=== PATIENT | male | born 2000 | race African-American/Black ===

== ENCOUNTER 2020-03-01 22:45 | Emergency (ER) | payer MEDICARE, MEDICAID ==
[~2020-03-01] VITALS: Ht 175 cm; Wt 60.8 kg
[~2020-03-01 22:45] MED LIST: DIVA250T12; RISP0.5T24; VIVANCE
--- OUTSIDE RECORDS SUMMARY | 2020-03-01 22:51 | XMS REPORT | Continuity of Care Document ---
Author Organization Unknown Address Unknown Phone Unavailable Allergies Active Description Code Type Severity Reaction Onset Reported/Identified Relationship to Patient Clinical Status Yes risperidone [id number] Drug Aller gy Unknown N/A 10/26/2019 Medications There is no data. Problems There is no data. Procedures There is no data. Results There is no data. Encounters ACCT No. Visit Date/Time Discharge Status Pt. Type Provider Facility Loc./Unit Complaint [id number] 10/26/2019 15:49:00 019 16:22:00 DIS Emergency ERIN MACK [facility] ER RASH
--- OUTSIDE RECORDS SUMMARY | 2020-03-01 22:51 | XMS REPORT ---
Author Author Cristian BUSTILLOS 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 Role Phone ALEXX BUSTILLOS Unavailable PROBLEMS Unknown Problems ALLERGIES No Information ENCOUNTERS Encounter Location Date Diagnosis [facility] [address] [place] [address] Feb, [facility] [place] [address] [facility] [id number] [place] [address] Apr, IMMUNIZATIONS No Known Immunizations SOCIAL HISTORY Never Assessed REASON FOR VISIT Requests return call PLAN OF CARE VITAL SIGNS MEDICATIONS Unknown Medications RESULTS No Results PROCEDURES No Known procedures INSTRUCTIONS MEDICATIONS ADMINISTERED No Known Medications
[2020-03-01] MEDS ORDERED: LACTATED RINGERS 1,000 ML IV ONE (22:59)
[2020-03-01 23:07] LABS: BILIRUBIN,URINE NEGATIVE (NEGATIVE); CLARITY,URINE SL CLOUDY; COLOR,URINE YELLOW; GLUCOSE, URINE (UA) NEGATIVE (NEGATIVE); KETONES,URINE 2+ (NEGATIVE); LEUKOCYTE ESTERASE ,URINE TRACE (NEGATIVE); NITRITE,URINE NEGATIVE (NEGATIVE); PROTEIN,URINE NEGATIVE (NEGATIVE)
--- NOTE | 2020-03-01 23:16 | ED General ---
General Chief Complaint: General Problems/Pain Stated Complaint: WEAKNESS Nursing Triage Note: Pt ambulates to Rm 5 with c/o weakness, headache and "feeling weird". Pt states he was Dx with upper resp infection x 1 mo ago and has been taking nyquil. Nursing Sepsis Screen: No Definite Risk Source of Information: Patient Exam Limitations: No Limitations History of Present Illness Date Seen by Provider: Mar 01, 2020 Time Seen by Provider: 22:55 Initial Comments Here with a variety of vague complaints including feeling weak and weird, tingly and concerned about having history of upper respiratory infection diagnosed a month ago while in [place]. Denies fevers but is not sure. Has had some anak-pga-zpbggde medicine that he reports is not helping. Denies breathing problems or sore throat. Runny nose or cough currently. Admits to drinking a little bit tonight of Devon's hard lemonade. States it is only about a half a bottle. Has been staying with family here locally over the last month and has no known sick contacts. Reports throwing up some phlegm today. Reports darker urine and thinks he might be dehydrated. History of bipolar disorder but hasn't been on meds for "a long time". Timing/Duration: Changing Over Time, Intermittent, Other (4-6 weeks) Severity: Mild, Moderate Associated Systoms: No Chest Pain; Cough (mild intermittent); No Fever/Chills; Nausea/Vomiting; No Shortness of Air; Weakness Allergies and Home Medications Allergies Coded Allergies: No Known Drug Allergies (Unverified , 03/01/20) Patient Home Medication List Home Medication List Reviewed: Yes Review of Systems Review of Systems Constitutional: see HPI EENTM: No nose congestion, No throat pain Respiratory: cough; No short of breath Cardiovascular: No no symptoms reported Gastrointestinal: see HPI; No abdominal pain, No diarrhea Genitourinary: see HPI; No dysuria, No frequency Musculoskeletal: no symptoms reported Skin: no symptoms reported Psychiatric/Neurological: See HPI All Other Systems Reviewed Negative Unless Noted: Yes Past Jiguoht-Ykhmvt-Fhvsey Hx Past Med/Social Hx: Reviewed Nursing Past Med/Soc Hx Patient Social History Alcohol Use: Rarely Uses Recreational Drug Use: No Smoking Status: Former Smoker Type Used: Cigarettes Former Smoker, Quit: Jan 27, 2020 2nd Hand Smoke Exposure: Yes Recent Foreign Travel: No Contact w/Someone Who Travel: No Recent Infectious Disease Expo: No Past Medical History Surgeries: No Respiratory: No Cardiac: No Neurological: No Genitourinary: No Gastrointestinal: No Musculoskeletal: No Endocrine: No Psychosocial: Yes ADD/ADHD, Bipolar Family Medical History Reviewed Nursing Family Hx Physical Exam Vital Signs Vital Signs - First Documented 03/01/20 22:52 Temp 36.5 Pulse 87 Resp 25 B/P (MAP) 146/89 (108) Pulse Ox 98 O2 Delivery Room Air Capillary Refill : Less Than 3 Seconds Height, Weight, BMI Height: '" Weight: lbs. oz. kg; 19.00 BMI Method: General Appearance: No Apparent Distress, WD/WN HEENT: PERRL/EOMI, TMs Normal, Normal ENT Inspection, Pharynx Normal Neck: Non Tender, Supple Respiratory: Lungs Clear, Normal Breath Sounds Cardiovascular: Regular Rate, Rhythm, No Murmur Gastrointestinal: Non Tender, Soft Back: Normal Inspection, No CVA Tenderness, No Vertebral Tenderness Extremity: Normal Range of Motion, Non Tender Neurologic/Psychiatric: Alert, Oriented x3 Skin: Warm/Dry, Other (has hicky gardner on his neck) Progress/Results/Core Measures Suspected Sepsis Recent Fever Within 48 Hours: No Infection Criteria Present: None New/Unexplained Altered Menta: No Sepsis Screen: No Definite Risk SIRS Temperature: Pulse: 87 Respiratory Rate: 25 Laboratory Tests 03/01/20 23:05: White Blood Count 7.8 Blood Pressure 146 /89 Mean: 108 Laboratory Tests 03/01/20 23:05: Creatinine 0.79, Platelet Count 208, Total Bilirubin 0.9 Results/Orders Lab Results Laboratory Tests Test 03/01/20 23:00 03/01/20 23:05 03/01/20 23:11 Range/Units Urine Color YELLOW Urine Clarity SL CLOUDY Urine pH 7.0 5-9 Urine Specific [place] 1.015 L 1.016-1.022 Urine Protein NEGATIVE NEGATIVE Urine Glucose (UA) NEGATIVE NEGATIVE Urine Ketones 2+ H NEGATIVE Urine Nitrite NEGATIVE NEGATIVE Urine Bilirubin NEGATIVE NEGATIVE Urine Urobilinogen 0.2 < = 1.0 MG/DL Urine Leukocyte Esterase TRACE H NEGATIVE Urine RBC (Auto) NEGATIVE NEGATIVE Urine RBC NONE /HPF Urine WBC 2-5 /HPF Urine Crystals NONE /LPF Urine Bacteria TRACE /HPF Urine Casts NONE /LPF Urine Mucus SMALL H /LPF Urine Culture Indicated NO White Blood Count 7.8 4.3-11.0 10^3/uL Red Blood Count 4.80 4.35-5.85 10^6/uL Hemoglobin 14.1 13.3-17.7 G/DL Hematocrit 40 40-54 % Mean Corpuscular Volume 84 80-99 FL Mean Corpuscular Hemoglobin 29 25-34 PG Mean Corpuscular Hemoglobin Concent 35 32-36 G/DL Red Cell Distribution Width 12.3 10.0-14.5 % Platelet Count 208 130-400 10^3/uL Mean Platelet Volume 10.2 7.4-10.4 FL Neutrophils (%) (Auto) 43 42-75 % Lymphocytes (%) (Auto) 42 12-44 % Monocytes (%) (Auto) 10 0-12 % Eosinophils (%) (Auto) 5 0-10 % Basophils (%) (Auto) 0 0-10 % Neutrophils # (Auto) 3.4 1.8-7.8 X 10^3 Lymphocytes # (Auto) 3.3 1.0-4.0 X 10^3 Monocytes # (Auto) 0.8 0.0-1.0 X 10^3 Eosinophils # (Auto) 0.4 H 0.0-0.3 10^3/uL Basophils # (Auto) 0.0 0.0-0.1 10^3/uL Sodium Level 140 135-145 MMOL/L Potassium Level 3.3 L 3.6-5.0 MMOL/L Chloride Level 105 98-107 MMOL/L Carbon Dioxide Level 21 21-32 MMOL/L Anion Gap 14 5-14 MMOL/L Blood Urea Nitrogen 13 7-18 MG/DL Creatinine 0.79 0.60-1.30 MG/DL Estimat Glomerular Filtration Rate > 60 BUN/Creatinine Ratio 16 Glucose Level 102 70-105 MG/DL Calcium Level 9.9 8.5-10.1 MG/DL Corrected Calcium 8.5-10.1 MG/DL Total Bilirubin 0.9 0.1-1.0 MG/DL Aspartate Amino Transf (AST/SGOT) 29 5-34 U/L Alanine Aminotransferase (ALT/SGPT) 30 0-55 U/L Alkaline Phosphatase 65 40-136 U/L C-Reactive Protein High Sensitivity 0.04 0.00-0.50 MG/DL Total Protein 8.1 6.4-8.2 GM/DL Albumin 4.9 H 3.2-4.5 GM/DL Glucometer 106 70-110 MG/DL My Orders Orders - MADDISON PETERSON MD Chest Pa/Lat (2 View) (03/01/20 22:59) Cbc With Automated Diff (03/01/20 22:59) Comprehensive Metabolic Panel (03/01/20 22:59) Hs C Reactive Protein (03/01/20 22:59) Ua Culture If Indicated (03/01/20 22:59) Ed Iv/Invasive Line Start (03/01/20 22:59) Lactated Ringers (Lr 1000 Ml Iv Solution (03/01/20 22:59) Acetaminophen Tablet (Tylenol Tablet) (03/01/20 23:49) Ketorolac Injection (Toradol Injection) (03/01/20 23:49) Ondansetron Injection (Zofran Injectio (03/02/20 00:00) Azithromycin Tablet (Zithromax Tablet) (03/01/20 23:52) Medications Given in ED Current Medications Medications Dose Ordered Sig/Omayra Route Start Time Stop Time Status Last Admin Dose Admin Lactated Ringer's 1,000 ml @ 0 mls/hr Q0M ONCE IV 03/01/20 22:59 03/01/20 23:01 DC 03/01/20 23:10 0 MLS/HR Vital Signs/I&O 03/01/20 22:52 Temp 36.5 Pulse 87 Resp 25 B/P (MAP) 146/89 (108) Pulse Ox 98 O2 Delivery Room Air Capillary Refill : Less Than 3 Seconds Blood Pressure Mean: 108 Progress Note : Progress Note Seen and evaluated. IV, labs, UA, LR 1 L bolus and 2 view chest x-ray ordered. Monitor patient. Tylenol 1 g by mouth, Toradol 30 mg IV and Zofran 4 mg IV ordered for headache and nausea. Monitor patient. 2350: Fluids complete and labs reviewed. No significant findings aside from some mild dehydration. This was discussed with the patient. Discharged home with return precautions. Patient verbalize understanding instructions and agreement with plan. We will initiate outpatient azithromycin for possible atypical pneumonia or bronchitis due to persistence over the last month and a half. Azithromycin 500 mg by mouth ordered. Diagnostic Imaging Diagonstic Imaging: Xray Plain Films/CT/US/NM/MRI: chest Comments No acute findings Departure Impression Primary Impression: Bronchitis Additional Impression: Dehydration Disposition: 01 HOME, SELF-CARE Condition: Against Medical Advice Departure-Patient Inst. Decision time for Depature: 23:53 Referrals: NO,LOCAL PHYSICIAN (PCP/Family) Primary Care Physician Patient Instructions: Acute Bronchitis, Adult (DC), Dehydration, Adult (DC) Add. Discharge Instructions: All discharge instructions reviewed with patient and/or family. Voiced understanding. Drink plenty of fluids. Eat a regular diet. You may start out with her liquids and then advance as tolerated to normal. You may take Tylenol/acetaminophen 1000 mg every 8 hours as needed for fever or pain if you are not taking other medications that have acetaminophen in them. You may take ibuprofen 600 mg every 8 hours as needed for fever or pain. Return for worse pain, fever, vomiting, weakness, breathing problems or other concerns as needed. Scripts Azithromycin (Azithromycin) 250 Mg Tablet 250 MG PO DAILY, #4 TAB 0 Refills Prov: MADDISON PETERSON MD 03/01/20 MADDISON PETERSON MD Mar 01, 2020 23:16
[2020-03-01 23:20] LABS: BASOPHILS % (AUTO) 0 % (0-10); EOSINOPHILS # (AUTO) 0.4 10^3/uL (0.0-0.3); EOSINOPHILS % (AUTO) 5 % (0-10); HEMATOCRIT 40 % (40-54); HEMOGLOBIN 14.1 G/DL (13.3-17.7); LYMPHOCYTES # (AUTO) 3.3 X 10^3 (1.0-4.0); LYMPHOCYTES % (AUTO) 42 % (12-44); MEAN CORPUSCULAR HEMOGLOBIN 29 PG (25-34); MEAN CORPUSCULAR HGB CONC 35 G/DL (32-36); MEAN CORPUSCULAR VOLUME 84 FL (80-99); MEAN PLATELET VOLUME 10.2 FL (7.4-10.4); MONOCYTES # (AUTO) 0.8 X 10^3 (0.0-1.0); MONOCYTES % (AUTO) 10 % (0-12); NEUTROPHILS # (AUTO) 3.4 X 10^3 (1.8-7.8); NEUTROPHILS % (AUTO) 43 % (42-75); PLATELET COUNT 208 10^3/uL (130-400); RED CELL DISTRIBUTION WIDTH 12.3 % (10.0-14.5); WHITE BLOOD COUNT 7.8 10^3/uL (4.3-11.0)
[2020-03-01 23:22] LABS: ALBUMIN 4.9 GM/DL (3.2-4.5); CHLORIDE 105 MMOL/L (98-107); POTASSIUM 3.3 MMOL/L (3.6-5.0); SODIUM 140 MMOL/L (135-145)
[2020-03-01 23:24] LABS: CALCIUM 9.9 MG/DL (8.5-10.1)
[2020-03-01 23:25] LABS: GLUCOSE 102 MG/DL (70-105); TOTAL PROTEIN 8.1 GM/DL (6.4-8.2)
[2020-03-01 23:26] LABS: BILIRUBIN,TOTAL 0.9 MG/DL (0.1-1.0); CARBON DIOXIDE 21 MMOL/L (21-32)
[2020-03-01 23:28] LABS: BACTERIA,URINE TRACE /HPF
[2020-03-01 23:28] LABS: ALKALINE PHOSPHATASE 65 U/L (40-136); CREATININE SERUM 0.79 MG/DL (0.60-1.30); GFR ESTIMATED > 60
[2020-03-01 23:29] LABS: BUN/CREATININE RATIO 16
[2020-03-01 23:40] LABS: ALANINE AMINOTRANSFERASE 30 U/L (0-55)
[2020-03-01] MEDS ORDERED: KETOROLAC 30 MG/ML VIAL IVP STA (23:49)
[2020-03-01] MEDS ORDERED: ACETAMINOPHEN 500 MG TAB (TYLENOL) PO STA (23:49)
[2020-03-01] MEDS ORDERED: AZITHROMYCIN 250 MG TAB (ZITHROMAX) PO STA (23:52)
[2020-03-01] MEDS ORDERED: AZIT250T12 PO (23:56)
[2020-03-02] MEDS ORDERED: ONDANSETRON 4 MG/2 ML (SDV) Z0FRAN IVP ONE
[2020-03-02 00:21] VITALS: BP 129/87
--- NOTE | 2020-03-02 06:41 | Diagnostic Imaging Report ---
INDICATION: Cough and congestion. No prior examinations are available for comparison. FINDINGS: The heart size, mediastinal configuration, and pulmonary vascularity are within normal limits. There is no pleural effusion, pneumothorax, or pneumonia. The osseous structures are unremarkable. IMPRESSION: No acute cardiopulmonary abnormality. Dictated by: Dictated on workstation # [id number]
== END 2020-03-02 00:22 | disposition home or self-care (01) ==
LOC: EDUNIT# 22:45 → ER 22:47
DX: J40 Bronchitis, not specified as acute or chronic (principal); E86.0 Dehydration; F31.9 Bipolar disorder, unspecified; Z91.14 Patient's other noncompliance with medication regimen; Z87.891 Personal history of nicotine dependence; Z77.22 Contact with and (suspected) exposure to environmental tobacco smoke (acute) (chronic)
CPT/HCPCS: 36415; 71046; 80053; 81000; 82962; 85025; 86141

== ENCOUNTER 2020-03-22 21:33 | Emergency (ER) | payer MEDICARE, MEDICAID ==
[~2020-03-22] VITALS: Ht 175 cm; Wt 62.8 kg
[~2020-03-22 21:33] MED LIST changes: +AZIT250T12 PO
--- OUTSIDE RECORDS SUMMARY | 2020-03-22 21:39 | XMS REPORT | Continuity of Care Document ---
Author Organization Unknown Address Unknown Phone Unavailable Allergies Active Description Code Type Severity Reaction Onset Reported/Identified Relationship to Patient Clinical Status Yes risperidone [id number] Drug Aller gy Unknown N/A 10/26/2019 Yes No Known Drug Allergies [id number] Drug Allergy Unknown N/A 03/01/2020 Medications There is no data. Problems Date Dx Coded Attending Type Code Diagnosis Diagnosed By 10/26/2019 TANG KHAN APRN Other L23.9 ALLERGIC CONTACT DERMATITIS, UNSPECIFIED CAUSE 10/26/2019 TANG KHAN APRN Other R21 RASH AND OTHER NONSPECIFIC SKIN ERUPTION 03/02/2020 MADDISON PETERSON MD Ot E86.0 DEHYDRATION 03/02/2020 MADDISON PETERSON MD Ot F31.9 BIPOLAR DISORDER, UNSPECIFIED 03/02/2020 MADDISON PETERSON MD Ot J40 BRONCHITIS, NOT SPECIFIED ACUTE OR CH 03/02/2020 MADDISON PETERSON MD Ot R53.1 WEAKNESS 03/02/2020 MADDISON PETERSON MD Ot Z77.22 CNTCT W AND EXPSR TO ENVIRON TOBACCO SMO 03/02/2020 MADDISON PETERSON MD Ot Z87.891 PERSONAL HISTORY OF NICOTINE DEPENDENCE 03/02/2020 MADDISON PETERSON MD Ot Z91.14 PATIENT'S OTHER NONCOMPLIANCE WITH MEDIC 03/05/2020 MADDISON PETERSON MD Ot E86.0 DEHYDRATION 03/05/2020 MADDISON PETERSON MD Ot F31.9 BIPOLAR DISORDER, UNSPECIFIED 03/05/2020 MADDISON PETERSON MD Ot J40 BRONCHITIS, NOT SPECIFIED ACUTE OR CH 03/05/2020 MADDISON PETERSON MD Ot R53.1 WEAKNESS 03/05/2020 MADDISON PETERSON MD Ot Z77.22 CNTCT W AND EXPSR TO ENVIRON TOBACCO SMO 03/05/2020 MADDISON PETERSON MD Ot Z87.891 PERSONAL HISTORY OF NICOTINE DEPENDENCE 03/05/2020 NICHOLAS HALL, MADDISON Andrews Ot Z91.14 PATIENT'S OTHER NONCOMPLIANCE WITH MEDIC Procedures Code Description [place] [address] JYOTSNA PUENTE DEPT VISIT 10/26/2019 Q0163 Diph enhydramine hydrochloride, 50 mg, 10/26/2019 Results Test Result Range Complete urinalysis with reflex to cultu re - 03/01/20 23:00 Urine color determination YELLOW NRG Urine clarity determination SL CLOUDY N RG Urine pH measurement by test strip 7.0 5-9 Specific gravity of urine by test strip 1.015 1.016-1.022 Urine protein assay by test strip, semi-quantitative NEGATIVE NEGATIVE Urine glucose detection by automated test strip NE GATIVE NEGATIVE Erythrocytes detection in urine sediment by light micr oscopy NEGATIVE NEGATIVE Urine ketones detection by automated test strip 2+ NEGATIVE Urine nitrite detection by test strip NEGATIVE NEGATIVE Urine total bilirubin detection by test strip NEGA TIVE NEGATIVE Urine urobilinogen measurement by automated test strip (mass/volume) 0.2 mg/dL < = 1.0 Urine leukocyte esterase detection by dipstick TRA CE NEGATIVE Automated urine sediment erythrocyte cou nt by microscopy (number/high power field) NONE NRG Automated urine sediment leukocyte count by microscopy (number/high power field) [HPF] NRG Bacteria detection in urine sediment by light microsco py TRACE NRG Crystals detection in urine sediment by light microsco py NONE NRG Casts detection in urine sediment by light microscopy NONE NRG Mucus detection in urine sediment by light microscopy SMALL NRG Complete urinalysis with reflex to culture NO NRG Comprehensive metabolic panel - 03/01/20 23:05 Serum or plasma sodium measurement (moles/volume) 140 mmol/L 135-145 Serum or plasma potassium measurement (moles/volume) 3.3 mmol/L 3.6-5.0 Serum or plasma chloride measurement (moles/volume) 105 mmol/L 98-107 Carbon dioxide 21 mmol/L 21-32 Serum or plasma anion gap determination (moles/volume) 14 mmol/L 5-14 Serum or plasma urea nitrogen measurement (mass/volume ) 13 mg/dL 7-18 Serum or plasma creatinine measurement (mass/volume) 0.79 mg/dL 0.60-1.30 Serum or plasma urea nitrogen/creatinine mass ratio 16 NRG Serum or plasma creatinine measurement w ith calculation of estimated glomerular filtration rate > NRG Serum or plasma glucose measurement (mass/volume) 102 mg/dL 70-105 Serum or plasma calcium measurement (mass/volume) 9.9 mg/dL 8.5-10.1 Serum or plasma total bilirubin measurement (mass/volu me) 0.9 mg/dL 0.1-1.0 Serum or plasma alkaline phosphatase maximo surement (enzymatic activity/volume) 65 U/L 40-136 Serum or plasma aspartate aminotransfera se measurement (enzymatic activity/volume) 29 U/L 5-34 Serum or plasma alanine aminotransferase measurement (enzymatic activity/volume) 30 U/L 0-55 Serum or plasma protein measurement (mass/volume) 8.1 g/dL 6.4-8.2 Serum or plasma albumin measurement (mass/volume) 4.9 g/dL 3.2-4.5 Complete blood count (CBC) with automate d white blood cell (WBC) differential - 03/01/20 23:05 Blood leukocytes automated count (number/volume) 7.8 10*3/uL 4.3-11.0 Blood erythrocytes automated count (number/volume) 4.80 10*6/uL 4.35-5.85 Venous blood hemoglobin measurement (mass/volume) 14.1 g/dL 13.3-17.7 Blood hematocrit (volume fraction) 40 % 40-54 Automated erythrocyte mean corpuscular volume 84 [ foz_us] 80-99 Automated erythrocyte mean corpuscular h emoglobin (mass per erythrocyte) 29 pg 25-34 Automated erythrocyte mean corpuscular h emoglobin concentration measurement (mass/volume) 35 g/dL 32-36 Automated erythrocyte distribution width ratio 12. 3 % 10.0- 14.5 Automated blood platelet count (count/volume) 208 10*3/uL 130-400 Automated blood platelet mean volume measurement 10.2 [foz_us] 7.4-10.4 Automated blood neutrophils/100 leukocytes 43 % 42-75 Automated blood lymphocytes/100 leukocytes 42 % 12-44 Blood monocytes/100 leukocytes 10 % 0-12 Automated blood eosinophils/100 leukocytes 5 % 0-10 Automated blood basophils/100 leukocytes 0 % 0-10 Blood neutrophils automated count (number/volume) 3.4 10*3 1.8-7.8 Blood lymphocytes automated count (number/volume) 3.3 10*3 1.0-4.0 Blood monocytes automated count (number/volume) 0. 8 10*3 0.0-1.0 Automated eosinophil count 0.4 10*3/uL 0 .0-0.3 Automated blood basophil count (count/volume) 0.0 10*3/uL 0.0-0.1 Serum or plasma C reactive protein measu rement (mass/volume) - 03/01/20 23:05 Serum or plasma C reactive protein measurement (mass/v olume) 0.04 mg/dL 0.00-0.50 Capillary blood glucose measurement by g lucometer (mass/volume) - 03/01/20 23:11 Capillary blood glucose measurement by glucometer (mas s/volume) 106 mg/dL 70-110 Encounters ACCT No. Visit Date/Time Discharge Status Pt. Type Provider Facility Loc./Unit Complaint [id number] 10/26/2019 15:49:00 019 16:22:00 DIS Emergency ERIN MACK [facility] ER RASH [id number] 03/01/2020 22:47:00 020 00:22:00 DIS Emergency NICHOLAS HALL, MADDISON Andrews [facility] ER WEAKNESS
[2020-03-23] MEDS ORDERED: FLUT9.9S NSEACH (01:01)
--- NOTE | 2020-03-23 01:01 | ED General ---
General Chief Complaint: Respiratory Problems Stated Complaint: BRONCHITIS Source of Information: Patient Exam Limitations: No Limitations History of Present Illness Date Seen by Provider: March 23, 2020 Time Seen by Provider: 00:40 Initial Comments Treated in the ER for bronchitis and dehydration 3 weeks ago. Since then cough has improved. But he now has occasional chest and epigastric pain that it diet dependent. He also has sneezing and post nasal drip. He wonders about dehydration but he has been drinking plenty of clears with normal urine. Vital signs are unremarkable. States he sometimes feels "weird". Denies smoking but is exposed to second hand cigarette and marijuana. Allergies and Home Medications Allergies Coded Allergies: aripiprazole (Verified Allergy, Unknown, 03/23/20) risperidone (Verified Allergy, Unknown, 03/23/20) Home Medications Azithromycin 250 Mg Tablet, 250 MG PO DAILY Prescribed by: MADDISON PETERSON on 03/01/20 3793 Fluticasone Propionate 9.9 Ml [place].susp, 2 SPRAY NSEACH DAILY 2 SPRAYS PER NOSTRIL DAILY X 2 DAYS THEN 1 SPRAY DAILY Prescribed by: RADHA MASSEY on 03/23/20 0101 Patient Home Medication List Home Medication List Reviewed: Yes Review of Systems Review of Systems Constitutional: no symptoms reported EENTM: see HPI Respiratory: see HPI Cardiovascular: no symptoms reported Gastrointestinal: no symptoms reported Genitourinary: no symptoms reported Musculoskeletal: no symptoms reported Skin: no symptoms reported Psychiatric/Neurological: No Symptoms Reported Hematologic/Lymphatic: No Symptoms Reported Past Qfcranx-Fmoqhe-Qajerd Hx Past Med/Social Hx: Reviewed Nursing Past Med/Soc Hx Patient Social History Type Used: Cigarettes Former Smoker, Quit: Jan 27, 2020 2nd Hand Smoke Exposure: Yes Recent Foreign Travel: No Contact w/Someone Who Travel: No Past Medical History Surgeries: No Respiratory: No Cardiac: No Neurological: No Genitourinary: No Gastrointestinal: No Musculoskeletal: No Endocrine: No HEENT: No Cancer: No Psychosocial: Yes ADD/ADHD, Bipolar Physical Exam Vital Signs Vital Signs - First Documented 03/22/20 03/23/20 23:28 01:05 Temp 36.8 Pulse 75 Resp 20 B/P (MAP) 142/105 (117) Pulse Ox 98 O2 Delivery Room Air Capillary Refill : Height, Weight, BMI Height: '" Weight: lbs. oz. kg; 19.00 BMI Method: General Appearance: No Apparent Distress, WD/WN Eyes: Bilateral Eye Normal Inspection HEENT: PERRL/EOMI, TMs Normal, Normal ENT Inspection, Pharynx Normal, Other (cobblestoning of posterior pharynx) Neck: Normal Inspection Respiratory: Lungs Clear, Normal Breath Sounds, No Accessory Muscle Use, No Respiratory Distress, Other (no cough or wheezing with forced expiration) Cardiovascular: Regular Rate, Rhythm, No Edema, No Murmur Gastrointestinal: Normal Bowel Sounds, Soft, Tenderness (minimal in the epigastric) Extremity: Normal Inspection, No Pedal Edema Neurologic/Psychiatric: Alert, Oriented x3, No Motor/Sensory Deficits, Normal Mood/Affect Skin: Normal Color, Warm/Dry Progress/Results/Core Measures Suspected Sepsis SIRS Temperature: Pulse: Respiratory Rate: Blood Pressure / Mean: Results/Orders Vital Signs/I&O 03/22/20 03/23/20 23:28 01:05 Temp 36.8 36.8 Pulse 75 70 Resp 20 18 B/P (MAP) 142/105 (117) 123/80 (117) Pulse Ox 98 O2 Delivery Room Air Room Air Capillary Refill : Departure Impression Primary Impression: Postnasal drip Additional Impressions: Abdominal discomfort, epigastric Allergic rhinitis Qualified Codes: J30.9 - Allergic rhinitis, unspecified Disposition: HOME, SELF-CARE Condition: Stable Departure-Patient Inst. Referrals: NO,LOCAL PHYSICIAN (PCP/Family) Primary Care Physician Patient Instructions: Seasonal Allergies (DC) Add. Discharge Instructions: Avoid foods and drinks that upsets your stomach. If needed, you may use zwxo-ege-dyvbsvl antiacid medications such as Pepcid (famotidine), omeprazole, etc. Follow package instructions. For allergies use a long-acting antihistamine such as Claritin (loratadine), Zyrtec (cetirizine), etc. You may also use Flonase nasal spray as directed to help with allergies and postnasal drip. Follow-up with your primary care provider if this does not improve your symptoms after a week or two. Drink plenty of clear liquids to stay well-hydrated and avoid exposure to irritants such as smoke. All discharge instructions reviewed with patient and/or family. Voiced understanding. Scripts Fluticasone Propionate (Flonase Allergy Relief) 9.9 Ml [place].susp 2 SPRAY NSEACH DAILY, #1 EACH 2 SPRAYS PER NOSTRIL DAILY X 2 DAYS THEN 1 SPRAY DAILY Prov: RADHA VALENZUELA MD 03/23/20 RADHA VALENZUELA MD March 23, 2020 01:01
[2020-03-23 01:05] VITALS: BP 123/80
== END 2020-03-23 01:06 | disposition home or self-care (01) ==
LOC: EDUNIT# 21:33 → ER 21:35
DX: J30.9 Allergic rhinitis, unspecified (principal); R10.13 Epigastric pain; Z88.8 Allergy status to other drugs, medicaments and biological substances; Z79.51 Long term (current) use of inhaled steroids; Z87.891 Personal history of nicotine dependence; Z77.22 Contact with and (suspected) exposure to environmental tobacco smoke (acute) (chronic)
CPT/HCPCS: 99281

== ENCOUNTER 2021-03-27 19:14 | Emergency (ER) | payer MEDICARE, MEDICAID ==
[~2021-03-27] VITALS: Ht 175.3 cm; Wt 61.4 kg
[~2021-03-27 19:14] MED LIST changes: +FLUT9.9S NSEACH
--- NOTE | 2021-03-27 19:40 | ED Abdominal Pain ---
General Chief Complaint: Abdominal/GI Problems Stated Complaint: VOMITING / ABD PAIN Source of Information: Patient Exam Limitations: No Limitations (JULIO CESAR BOOKER APRN) History of Present Illness Date Seen by Provider: March 27, 2021 Time Seen by Provider: 19:38 Initial Comments To ER with midline periumbilical abdominal pain that started today. He vomited on the way here. He states that he has not had anything to eat nor has he had a bowel movement for about 2-3 weeks. Timing/Duration: Other Severity/Quality: Moderate Location: Other (Periumbilical) Radiation: No Radiation Activities at Onset: None Associated Symptoms: Nausea/Vomiting (JULIO CESAR BOOKER APRN) Allergies and Home Medications Allergies Coded Allergies: aripiprazole (Verified Allergy, Unknown, 03/23/20) risperidone (Verified Allergy, Unknown, 03/23/20) Home Medications Azithromycin 250 Mg Tablet, 250 MG PO DAILY Prescribed by: MADDISON PETERSON on 03/01/20 2356 Fluticasone Propionate 9.9 Ml [place].susp, 2 SPRAY NSEACH DAILY 2 SPRAYS PER NOSTRIL DAILY X 2 DAYS THEN 1 SPRAY DAILY Prescribed by: RADHA MOONEY on 03/23/20 0101 Patient Home Medication List Home Medication List Reviewed: Yes (JULIO CESAR BOOKER APRN) Review of Systems Review of Systems Constitutional: see HPI EENTM: No Symptoms Reported Respiratory: No Symptoms Reported Cardiovascular: No Symptoms Reported Gastrointestinal: See HPI, Abdominal Pain, Diarrhea, Nausea, Vomiting Genitourinary: No Symptoms Reported Musculoskeletal: no symptoms reported Skin: no symptoms reported Psychiatric/Neurological: No Symptoms Reported Endocrine: No Symptoms Reported Hematologic/Lymphatic: No Symptoms Reported (JULIO CESAR BOOKER APRN) Past Rzojqky-Qwvssg-Mjmsai Hx Patient Social History Type Used: Cigarettes Former Smoker, Quit: Jan 27, 2020 2nd Hand Smoke Exposure: Yes Recent Hopitalizations: No (JULIO CESAR BOOKER APRN) Seasonal Allergies Seasonal Allergies: No (JULIO CESAR BOOKER APRN) Past Medical History Surgeries: No Respiratory: No Cardiac: No Neurological: No Genitourinary: No Gastrointestinal: No Musculoskeletal: No Endocrine: No HEENT: No Cancer: No Psychosocial: Yes ADD/ADHD, Bipolar Integumentary: No (JULIO CESAR BOOKER APRN) Physical Exam Vital Signs Vital Signs - First Documented 03/27/21 19:18 Temp 37.0 Pulse 81 Resp 18 B/P (MAP) 136/85 (102) Pulse Ox 98 O2 Delivery Room Air (FAHAD HURT) Vital Signs Capillary Refill : (JULIO CESAR BOOKER APRN) Height/Weight/BMI Height: '" Weight: lbs. oz. kg; 20.00 BMI Method: General Appearance: WD/WN, no apparent distress Respiratory: no respiratory distress, no accessory muscle use Cardiovascular: regular rate, rhythm, no murmur Gastrointestinal: normal bowel sounds, soft, tenderness Neurologic/Psychiatric: alert, normal mood/affect, oriented x 3 Skin: normal color, warm/dry (JULIO CESAR BOOKER APRN) Progress/Results/Core Measures Results/Orders Lab Results Laboratory Tests Test 03/27/21 19:30 03/27/21 20:53 03/27/21 21:36 03/28/21 02:52 Range/Units White Blood Count 8.1 4.3-11.0 10^3/uL Red Blood Count 5.47 4.30-5.52 10^6/uL Hemoglobin 15.9 13.3-17.7 g/dL Hematocrit 45 40-54 % Mean Corpuscular Volume 83 80-99 fL Mean Corpuscular Hemoglobin 29 25-34 pg Mean Corpuscular Hemoglobin Concent 35 32-36 g/dL Red Cell Distribution Width 11.9 10.0-14.5 % Platelet Count 239 130-400 10^3/uL Mean Platelet Volume 10.5 9.0-12.2 fL Immature Granulocyte % (Auto) 0 % Neutrophils (%) (Auto) 73 42-75 % Lymphocytes (%) (Auto) 17 12-44 % Monocytes (%) (Auto) 9 0-12 % Eosinophils (%) (Auto) 0 0-10 % Basophils (%) (Auto) 0 0-10 % Neutrophils # (Auto) 5.9 1.8-7.8 10^3/uL Lymphocytes # (Auto) 1.4 1.0-4.0 10^3/uL Monocytes # (Auto) 0.7 0.0-1.0 10^3/uL Eosinophils # (Auto) 0.0 0.0-0.3 10^3/uL Basophils # (Auto) 0.0 0.0-0.1 10^3/uL Immature Granulocyte # (Auto) 0.0 0.0-0.1 10^3/uL Sodium Level 141 135-145 MMOL/L Potassium Level 3.2 L 3.6-5.0 MMOL/L Chloride Level 103 98-107 MMOL/L Carbon Dioxide Level 25 21-32 MMOL/L Anion Gap 13 5-14 MMOL/L Blood Urea Nitrogen 15 7-18 MG/DL Creatinine 0.81 0.60-1.30 MG/DL Estimat Glomerular Filtration Rate > 60 BUN/Creatinine Ratio 19 Glucose Level 125 H 70-105 MG/DL Calcium Level 10.1 8.5-10.1 MG/DL Corrected Calcium 8.5-10.1 MG/DL Total Bilirubin 1.2 H 0.1-1.0 MG/DL Aspartate Amino Transf (AST/SGOT) 26 5-34 U/L Alanine Aminotransferase (ALT/SGPT) 31 0-55 U/L Alkaline Phosphatase 73 40-136 U/L C-Reactive Protein High Sensitivity 0.02 0.00-0.50 MG/DL Total Protein 8.1 6.4-8.2 GM/DL Albumin 5.1 H 3.2-4.5 GM/DL Lipase 19 8-78 U/L Salicylates Level < 5.0 L 5.0-20.0 MG/DL Acetaminophen Level 21 10-30 UG/ML Serum Alcohol < 10 <10 MG/DL Urine Color YELLOW Urine Clarity CLEAR Urine pH 6.5 5-9 Urine Specific [place] 1.015 L 1.016-1.022 Urine Protein 1+ H NEGATIVE Urine Glucose (UA) NEGATIVE NEGATIVE Urine Ketones 1+ H NEGATIVE Urine Nitrite NEGATIVE NEGATIVE Urine Bilirubin 1+ H NEGATIVE Urine Urobilinogen 2.0 < = 1.0 MG/DL Urine Leukocyte Esterase NEGATIVE NEGATIVE Urine RBC (Auto) NEGATIVE NEGATIVE Urine RBC NONE /HPF Urine WBC 0-2 /HPF Urine Crystals NONE /LPF Urine Bacteria FEW H /HPF Urine Casts NONE /LPF Urine Mucus LARGE H /LPF Urine Culture Indicated NO Urine Opiates Screen NEGATIVE NEGATIVE Urine Oxycodone Screen NEGATIVE NEGATIVE Urine Methadone Screen NEGATIVE NEGATIVE Urine Propoxyphene Screen NEGATIVE NEGATIVE Urine Barbiturates Screen NEGATIVE NEGATIVE Ur Tricyclic Antidepressants Screen NEGATIVE NEGATIVE Urine Phencyclidine Screen NEGATIVE NEGATIVE Urine Amphetamines Screen NEGATIVE NEGATIVE Urine Methamphetamines Screen NEGATIVE NEGATIVE Urine Benzodiazepines Screen NEGATIVE NEGATIVE Urine Cocaine Screen NEGATIVE NEGATIVE Urine Cannabinoids Screen NEGATIVE NEGATIVE Prothrombin Time 18.5 H 12.2-14.7 SEC INR Comment 1.5 H 0.8-1.4 SARS-CoV-2 RNA (RT-PCR) Not Detected Not Detecte (FAHAD HURT) My Orders Orders - FAHAD HURT Continuous Ekg Monitoring (03/27/21 21:17) Ekg Tracing (03/27/21 21:17) Covid 19 Inhouse Test (03/28/21 02:18) (FAHAD HURT) Medications Given in ED Current Medications Medications Dose Ordered Sig/Omayra Route Start Time Stop Time Status Last Admin Dose Admin Iohexol 100 ml ONCE ONCE IV 03/27/21 19:45 03/27/21 19:53 DC 03/27/21 19:57 100 ML Ketorolac Tromethamine 15 mg ONCE ONCE IVP 03/27/21 19:45 03/27/21 19:46 DC 03/27/21 19:46 15 MG Ondansetron HCl 8 mg ONCE ONCE IVP 03/27/21 19:45 03/27/21 19:46 DC 03/27/21 19:46 8 MG Sodium Chloride 100 ml ONCE ONCE IV 03/27/21 19:45 03/27/21 19:53 DC 03/27/21 19:57 80 ML (FAHAD HURT) Vital Signs/I&O 03/27/21 19:18 Temp 37.0 Pulse 81 Resp 18 B/P (MAP) 136/85 (102) Pulse Ox 98 O2 Delivery Room Air 03/28/21 00:00 Intake Total 1000 ml Balance 1000 ml (FAHAD HURT) Progress Progress Note #1: Time: 22:36 Progress Note Assumed care of the patient at shift change. Just prior to shift change the patient admitted to taking an unknown amount of Tylenol. Reviewed labs and imaging. Tylenol levels only 21 and after discussing this with poison control and they do not recommend any further medical work-up for this. Rest of his labs are unremarkable. He is voluntary to go inpatient psychiatric and so we have mental health screener's set up to talk to him. Progress Note #2: Time: 01:49 Progress Note Telemental health in the room with the patient. Patient's father went home and the patient has been sleeping softly. He asked for something to eat so we provided him with something to drink since has been having nausea all day. He tolerated this so we offered him a liquid diet for now. Progress Note #3: Time: 02:19 Progress Note Spoke to the telemental health screener and she has concluded her interview with the patient. She feels it is appropriate for the patient to be referred on to inpatient psychiatric placement. The patient is voluntary at this time. He has no other needs at this time. We did turn the lights down so he can get some sleep. He has already had food to eat and fluids to drink. The screener states we will need to do a Covid swab and fax the results to her. She will work on finding inpatient placement for him afterwards. Progress Note #4: Time: 06:09 Progress Note Past care of the patient over to Dr. Mooney. The patient has a space at [facility] in [place]. He has transportation lined up at 1500 today. Patient is sleeping soundly and has diet orders in. (FAHAD HURT) Initial ECG Impression Date: March 27, 2021 Initial ECG Impression Time: 21:18 Initial ECG Rate: 73 Initial ECG Rhythm: Normal Sinus Initial ECG Intervals: Normal Initial ECG Impression: Normal Initial ECG Comparisson: No Previous ECG Available Comment Normal sinus rhythm without clinically relevant ST changes. (FAHAD HURT) Diagnostic Imaging Diagonstic Imaging: CT Plain Films/CT/US/NM/MRI: abdomen, pelvis Comments [facility], [place] NAME: BRITANY ANDERSEN III [facility] REC#: [id number] PT STATUS: REG ER : 2000 PHYSICIAN: JULIO CESAR BOOKER [employer] ADMIT DATE: 03/27/21/ER Draft Date of Exam:03/27/21 CT ABDOMEN/PELVIS W PROCEDURE: CT abdomen and pelvis with contrast. TECHNIQUE: Multiple contiguous axial images were obtained through the abdomen and pelvis after administration of intravenous contrast. Auto Exposure Controls were utilized during the CT exam to meet ALARA standards for radiation dose reduction. All CT scans use one or more of the following dose optimizing techniques: automated exposure control, MA and/or KvP adjustment based on patient size and exam type or iterative reconstruction. INDICATION: Abdominal pain There are no prior studies available for comparison. The liver, spleen, pancreas, adrenals, kidneys, gallbladder, aorta and inferior vena cava and portal vein are unremarkable for an acute abnormality. The stomach is partially filled with fluid and difficult to assess. There is no pelvic mass or free fluid collection evident. The urinary bladder is grossly unremarkable. The prostate gland was not well visualized. The appendix was not well-visualized but there are no indirect signs of acute appendicitis. The bone windows show no sign of a fracture or of a destructive lesion. The lung bases are clear. IMPRESSION: 1. There is no acute abnormality of the abdomen or pelvis. 2. The appendix was not well-visualized but there are no indirect signs of acute appendicitis. Dictated on workstation # [id number] Dict: 03/27/212004 Trans: 03/27/212009 VALERIE [id number] Interpreted by: FERMIN MAGALLANES MD Electronically signed by: Reviewed: Reviewed by Me (FAHAD HURT) Transfer of Care Time: 06:09 Care transferred to: Dr. Mooney (FAHAD HURT) Departure Communication (Admissions) Family Conversation [id number]-patient now informs us that he took about a half a bottle of Tylenol this morning in an attempt to end his own life. He states he has been depressed for quite a long time and feels as though he does not have a purpose here. He took that half bottle of Tylenol at about 10 AM. Did not take any other medications. He does drink 1 can of 4 logos per day but did not have that today. He has a history of suicide attempt via ingestion of bleach about 1 year ago. He does not currently take any medications for mental health because the last time he took something it made his eyes rolled into the back of his head and he is scared of that happening again. Father is at the bedside and reports that he himself is bipolar with depression and schizophrenia. 2119-care turned over to Dr. Gaffney NAME: BRITANY NADERSEN III MED REC#: [id number] PT STATUS: REG ER : 2000 PHYSICIAN: JULIO CESAR BOOKER APRN ADMIT DATE: 03/27/21/ER Draft Date of Exam:03/27/21 CT ABDOMEN/PELVIS W PROCEDURE: CT abdomen and pelvis with contrast. TECHNIQUE: Multiple contiguous axial images were obtained through the abdomen and pelvis after administration of intravenous contrast. Auto Exposure Controls were utilized during the CT exam to meet ALARA standards for radiation dose reduction. All CT scans use one or more of the following dose optimizing techniques: automated exposure control, MA and/or KvP adjustment based on patient size and exam type or iterative reconstruction. INDICATION: Abdominal pain There are no prior studies available for comparison. The liver, spleen, pancreas, adrenals, kidneys, gallbladder, aorta and inferior vena cava and portal vein are unremarkable for an acute abnormality. The stomach is partially filled with fluid and difficult to assess. There is no pelvic mass or free fluid collection evident. The urinary bladder is grossly unremarkable. The prostate gland was not well visualized. The appendix was not well-visualized but there are no indirect signs of acute appendicitis. The bone windows show no sign of a fracture or of a destructive lesion. The lung bases are clear. IMPRESSION: 1. There is no acute abnormality of the abdomen or pelvis. 2. The appendix was not well-visualized but there are no indirect signs of acute appendicitis. Dictated on workstation # [id number] Dict: 03/27/212004 Trans: 03/27/212009 [facility] [id number] Interpreted by: FERMIN MAGALLANES MD Electronically signed by: (JULIO CESAR BOOKER APRN) Impression Primary Impression: Abdominal pain Qualified Codes: R10.84 - Generalized abdominal pain Additional Impression: Suicide attempt by acetaminophen overdose Qualified Codes: T39.1X2A - Poisoning by 4-aminophenol derivatives, intentional self-harm, initial encounter Disposition: 65 XFER TO PSYCH HOSP/UNIT Condition: Stable Transfer Transfer Reason: Exceeds level of care (No inpatient psych available locally) Time Spoke to Accepting Phy: 04:30 Transfer Progress Notes Accepted at [facility] in [place], [place] Anticipate transportation by private vehicle after 6 AM. Transfer Facility: [place], [place] Method of Transfer: Private Vehicle (FAHAD HURT) Departure-Patient Inst. Decision time for Depature: 21:01 (JULIO CESAR BOOKER APRN) Referrals: ALEXSANDRA SERRA BRETT D DO KIDO, TAKAAKI MD NO,LOCAL PHYSICIAN (PCP) Primary Care Physician Patient Instructions: No Instuctions Given JULIO CESAR BOOKER APRN March 27, 2021 19:40 FAHAD HURT March 27, 2021 22:40
[2021-03-27 19:43] LABS: BASOPHILS % (AUTO) 0 % (0-10); EOSINOPHILS % (AUTO) 0 % (0-10); HEMATOCRIT 45 % (40-54); HEMOGLOBIN 15.9 g/dL (13.3-17.7); LYMPHOCYTES # (AUTO) 1.4 10^3/uL (1.0-4.0); LYMPHOCYTES % (AUTO) 17 % (12-44); MEAN CORPUSCULAR HEMOGLOBIN 29 pg (25-34); MEAN CORPUSCULAR HGB CONC 35 g/dL (32-36); MEAN CORPUSCULAR VOLUME 83 fL (80-99); MEAN PLATELET VOLUME 10.5 fL (9.0-12.2); MONOCYTES # (AUTO) 0.7 10^3/uL (0.0-1.0); MONOCYTES % (AUTO) 9 % (0-12); NEUTROPHILS # (AUTO) 5.9 10^3/uL (1.8-7.8); NEUTROPHILS % (AUTO) 73 % (42-75); PLATELET COUNT 239 10^3/uL (130-400); WHITE BLOOD COUNT 8.1 10^3/uL (4.3-11.0)
[2021-03-27] MEDS ORDERED: NS 100 ML (IVPB) BAG IV ONE (19:45)
[2021-03-27] MEDS ORDERED: HOLD METFORMIN - RECEIVED CONTRAST 20 ML VIAL IV SCH (19:45)
[2021-03-27] MEDS ORDERED: IOHEXOL 350 MG/ML 100 ML (OMNIPAQUE 350) VIAL IV ONE (19:45)
[2021-03-27] MEDS ORDERED: NS IV 1000 ML 1,000 ML IV SCH ×2 (19:45→21:00)
[2021-03-27] MEDS ORDERED: ONDANSETRON 4 MG/2 ML (SDV) Z0FRAN IVP ONE (19:45)
[2021-03-27] MEDS ORDERED: KETOROLAC 30 MG/ML VIAL IVP ONE (19:45)
[2021-03-27 20:08] LABS: ALBUMIN 5.1 GM/DL (3.2-4.5)
[2021-03-27 20:09] LABS: CALCIUM 10.1 MG/DL (8.5-10.1)
--- NOTE | 2021-03-27 20:10 | Diagnostic Imaging Report ---
PROCEDURE: CT abdomen and pelvis with contrast. TECHNIQUE: Multiple contiguous axial images were obtained through the abdomen and pelvis after administration of intravenous contrast. Auto Exposure Controls were utilized during the CT exam to meet ALARA standards for radiation dose reduction. All CT scans use one or more of the following dose optimizing techniques: automated exposure control, MA and/or KvP adjustment based on patient size and exam type or iterative reconstruction. INDICATION: Abdominal pain There are no prior studies available for comparison. The liver, spleen, pancreas, adrenals, kidneys, gallbladder, aorta and inferior vena cava and portal vein are unremarkable for an acute abnormality. The stomach is partially filled with fluid and difficult to assess. There is no pelvic mass or free fluid collection evident. The urinary bladder is grossly unremarkable. The prostate gland was not well visualized. The appendix was not well-visualized but there are no indirect signs of acute appendicitis. The bone windows show no sign of a fracture or of a destructive lesion. The lung bases are clear. IMPRESSION: 1. There is no acute abnormality of the abdomen or pelvis. 2. The appendix was not well-visualized but there are no indirect signs of acute appendicitis. Dictated by: Dictated on workstation # [id number]
[2021-03-27 20:11] LABS: GLUCOSE 125 MG/DL (70-105); TOTAL PROTEIN 8.1 GM/DL (6.4-8.2)
[2021-03-27 20:12] LABS: BILIRUBIN,TOTAL 1.2 MG/DL (0.1-1.0); CARBON DIOXIDE 25 MMOL/L (21-32)
[2021-03-27 20:14] LABS: ALKALINE PHOSPHATASE 73 U/L (40-136); CREATININE SERUM 0.81 MG/DL (0.60-1.30); GFR ESTIMATED > 60
[2021-03-27 20:15] LABS: BUN/CREATININE RATIO 19
[2021-03-27 20:17] LABS: ALANINE AMINOTRANSFERASE 31 U/L (0-55)
[2021-03-27 20:18] LABS: LIPASE 19 U/L (8-78)
[2021-03-27 20:53] LABS: CHLORIDE 103 MMOL/L (98-107); POTASSIUM 3.2 MMOL/L (3.6-5.0); SODIUM 141 MMOL/L (135-145)
[2021-03-27 20:58] LABS: CLARITY,URINE CLEAR; COLOR,URINE YELLOW; GLUCOSE, URINE (UA) NEGATIVE (NEGATIVE); KETONES,URINE 1+ (NEGATIVE); LEUKOCYTE ESTERASE ,URINE NEGATIVE (NEGATIVE); NITRITE,URINE NEGATIVE (NEGATIVE); PH,URINE 6.5 (5-9); PROTEIN,URINE 1+ (NEGATIVE)
[2021-03-27] MEDS ORDERED: fentaNYL INJ 100 MCG/2 ML AMP IVP ONE (21:00)
[2021-03-27 21:11] LABS: WBC,URINE 0-2 /HPF
[2021-03-27 21:12] LABS: BACTERIA,URINE FEW /HPF
[2021-03-27 21:15] LABS: AMPHETAMINE SCREEN, URINE NEGATIVE (NEGATIVE); BARBITURATE SCREEN URINE NEGATIVE (NEGATIVE); BENZODIAZEPINES SCREEN URINE NEGATIVE (NEGATIVE); CANNABINOID SCREEN, URINE NEGATIVE (NEGATIVE); COCAINE SCREEN URINE NEGATIVE (NEGATIVE); METHADONE STAT NEGATIVE (NEGATIVE); METHAMPHETAMINE SCREEN URINE S NEGATIVE (NEGATIVE); OPIATE SCREEN URINE NEGATIVE (NEGATIVE); OXYCODONE STAT NEGATIVE (NEGATIVE); PROPOXYPHENE STAT NEGATIVE (NEGATIVE); TRICYCLIC ANTIDEPRESSANTS SCRE NEGATIVE (NEGATIVE)
[2021-03-27 21:26] LABS: ACETAMINOPHEN 21 UG/ML (10-30); SALICYLATE < 5.0 MG/DL (5.0-20.0)
[2021-03-27 21:56] LABS: INR 1.5 (0.8-1.4); PROTHROMBIN TIME PATIENT 18.5 SEC (12.2-14.7)
[2021-03-28 08:35] LABS: BILIRUBIN,URINE 1+ (NEGATIVE)
[2021-03-28 11:05] VITALS: BP 135/83
== END 2021-03-28 11:04 ==
LOC: EDUNIT# 19:14 → ER 19:16
DX: T39.1X2A Poisoning by 4-Aminophenol derivatives, intentional self-harm, initial encounter (principal); R10.33 Periumbilical pain
CPT/HCPCS: 74177; 80053; 80306; 81000; 83690; 85025; 85610; 86141; 87636; 93005; 99284; G0480 ×3; 36415; 80320; 80329

== ENCOUNTER 2021-04-10 04:31 | Emergency (ER) | payer MEDICARE, MEDICAID ==
[~2021-04-10] VITALS: Ht 175.3 cm; Wt 61.4 kg
[2021-04-10 04:44] VITALS: BP 142/103
[2021-04-10 04:59] LABS: BILIRUBIN,URINE 1+ (NEGATIVE); CLARITY,URINE CLEAR; COLOR,URINE YELLOW; GLUCOSE, URINE (UA) NEGATIVE (NEGATIVE); KETONES,URINE 2+ (NEGATIVE); LEUKOCYTE ESTERASE ,URINE 1+ (NEGATIVE); NITRITE,URINE NEGATIVE (NEGATIVE); PROTEIN,URINE TRACE (NEGATIVE)
[2021-04-10 05:01] LABS: BASOPHILS # (AUTO) 0.1 10^3/uL (0.0-0.1); BASOPHILS % (AUTO) 1 % (0-10); EOSINOPHILS # (AUTO) 0.1 10^3/uL (0.0-0.3); EOSINOPHILS % (AUTO) 2 % (0-10); HEMATOCRIT 45 % (40-54); HEMOGLOBIN 15.4 g/dL (13.3-17.7); LYMPHOCYTES # (AUTO) 2.5 10^3/uL (1.0-4.0); LYMPHOCYTES % (AUTO) 28 % (12-44); MEAN CORPUSCULAR HEMOGLOBIN 30 pg (25-34); MEAN CORPUSCULAR HGB CONC 35 g/dL (32-36); MEAN CORPUSCULAR VOLUME 86 fL (80-99); MEAN PLATELET VOLUME 10.4 fL (9.0-12.2); MONOCYTES # (AUTO) 0.8 10^3/uL (0.0-1.0); MONOCYTES % (AUTO) 9 % (0-12); NEUTROPHILS # (AUTO) 5.4 10^3/uL (1.8-7.8); NEUTROPHILS % (AUTO) 61 % (42-75); PLATELET COUNT 238 10^3/uL (130-400); WHITE BLOOD COUNT 8.8 10^3/uL (4.3-11.0)
--- NOTE | 2021-04-10 05:06 | ED Psychosocial ---
General Chief Complaint: Substance Abuse Stated Complaint: SMOKED POT 2 WKS AGO & STILL FEELS HIGH,BALDWIN Source: patient (VAGUE HISTORIAN) History of Present Illness Date Seen by Provider: Apr 10, 2021 Time Seen by Provider: 04:51 Initial Comments PT ARRIVES VIA POV FROM HOME--LIVES WITH HIS BROTHER STATES 2 WEEKS AGO HE WAS DRINKING AND GOT HIGH ON MARIJUANA AND HASN'T COME DOWN. STATES HE DOESN'T LIKE THE WAY IT IS MAKING HIM FEEL DENIES ANY ALCOHOL OR DRUG USE SINCE THEN PT HAS NOT SOUGHT CARE UNTIL TONIGHT SYMPTOMS NO DIFFERENT TONIGHT PT HAS NOT BEEN TO SLEEP TONIGHT PT WAS SEEN HERE 03/27/21 FOR SUICIDAL GESTURE, AND OVERDOSED ON TYLENOL ( NON- TOXIC DOSE) AND WAS TRANSFERRED TO [facility] IN [place], [place] STATES HE WAS THERE FOR 5 DAYS WAS STARTED ON DEPAKOTE, CARAFATE AND BENADRYL--SUPPOSED TO TAKE THEM AT NIGHT. PT HAS NOT BEEN TAKING THEM. TOOK THEM FOR A FEW DAYS AND SIMPLY QUIT TAKING THEM STATES HE WAS SUPPOSED TO FOLLOW UP WITH MENTAL HEALTH THERAPIST WHEN HE WAS DISMISSED FROM [facility], BUT NEVER DID. PT CLAIMS THE APPOINTMENT WAS IN [facility], AND HE COULD NOT GET A RIDE THERE. PT HAS NOT MADE ANY ATTEMPTED TO FOLLOW UP WITH ANYONE LOCALLY FOR MENTAL HEALTH, DESPITE PT BEING A [facility] PATIENT, WITH ACCESS TO THEIR MENTAL HEALTH SERVICES PT DENIES ANY SUICIDAL THOUGHTS AT THIS TIME NO FEVER OR RECENT ILLNESS PCP: [facility] Allergies and Home Medications Allergies Coded Allergies: aripiprazole (Verified Allergy, Unknown, 03/23/20) risperidone (Verified Allergy, Unknown, 03/23/20) Home Medications Azithromycin 250 Mg Tablet, 250 MG PO DAILY Prescribed by: MADDISON PETERSON on 03/01/20 7575 Fluticasone Propionate 9.9 Ml [place].susp, 2 SPRAY NSEACH DAILY 2 SPRAYS PER NOSTRIL DAILY X 2 DAYS THEN 1 SPRAY DAILY Prescribed by: RADHA MASSEY on 03/23/20 0101 Patient Home Medication List Home Medication List Reviewed: Yes Review of Systems Constitutional: see HPI Respiratory: no symptoms reported Cardiovascular: no symptoms reported Gastrointestinal: no symptoms reported Musculoskeletal: no symptoms reported Skin: no symptoms reported Psychiatric/Neurological: See HPI Past Licqikx-Foaapy-Cqxuib Hx Past Med/Social Hx: Reviewed and Corrections made Patient Social History Alcohol Use: Occasionally Uses Alcohol Beverage of Choice: Whiskey Drug of Choice: THC Smoking Status: Former Smoker Type Used: Cigarettes Former Smoker, Quit: Jan 27, 2020 2nd Hand Smoke Exposure: Yes Recent Hopitalizations: No Seasonal Allergies Seasonal Allergies: No Past Medical History Surgeries: No Respiratory: No Cardiac: No Neurological: No Genitourinary: No Gastrointestinal: No Musculoskeletal: No Endocrine: No HEENT: No Cancer: No Psychosocial: Yes (OVERDOSE ON TYLENOL 04/06/21-[facility]) ADD/ADHD, Anxiety, Suicide Attempts, Bipolar, Depression Integumentary: No Physical Exam Vital Signs - First Documented 04/10/21 04:44 Temp 36.7 Pulse 85 Resp 18 B/P (MAP) 142/103 (116) Pulse Ox 96 O2 Delivery Room Air Capillary Refill : Height, Weight, BMI Height: '" Weight: lbs. oz. kg; 19.00 BMI Method: General Appearance: WD/WN, no apparent distress, other (FLAT AFFECT) Neck: normal inspection Respiratory: normal breath sounds, no respiratory distress, no accessory muscle use Cardiovascular: regular rate, rhythm, no murmur Gastrointestinal: non tender, soft Extremities: normal inspection Neurologic/Psychiatric: sound effects person II-XII nml as tested, no motor/sensory deficits, alert, oriented x 3 Appearance/Memory: appropriate appearance, appropriate insight, neat, no memory impairment Behavior/Eye Contact: cooperative, good eye contact, normal speech Thoughts/Hallucinations: normal thought pattern, no apparent hallucination Skin: normal color (PT IS BLACK), warm/dry; No rash Progress/Results/Core Measures Results/Orders Lab Results Laboratory Tests Test 04/10/21 04:52 04/10/21 04:55 Range/Units Urine Color YELLOW Urine Clarity CLEAR Urine pH 7.0 5-9 Urine Specific [place] 1.020 1.016-1.022 Urine Protein TRACE H NEGATIVE Urine Glucose (UA) NEGATIVE NEGATIVE Urine Ketones 2+ H NEGATIVE Urine Nitrite NEGATIVE NEGATIVE Urine Bilirubin 1+ H NEGATIVE Urine Urobilinogen 4.0 < = 1.0 MG/DL Urine Leukocyte Esterase 1+ H NEGATIVE Urine RBC (Auto) NEGATIVE NEGATIVE Urine RBC NONE /HPF Urine WBC RARE /HPF Urine Squamous Epithelial Cells 0-2 /HPF Urine Crystals NONE /LPF Urine Bacteria TRACE /HPF Urine Casts NONE /LPF Urine Mucus LARGE H /LPF Urine Culture Indicated NO Urine Opiates Screen NEGATIVE NEGATIVE Urine Oxycodone Screen NEGATIVE NEGATIVE Urine Methadone Screen NEGATIVE NEGATIVE Urine Propoxyphene Screen NEGATIVE NEGATIVE Urine Barbiturates Screen NEGATIVE NEGATIVE Ur Tricyclic Antidepressants Screen NEGATIVE NEGATIVE Urine Phencyclidine Screen NEGATIVE NEGATIVE Urine Amphetamines Screen NEGATIVE NEGATIVE Urine Methamphetamines Screen NEGATIVE NEGATIVE Urine Benzodiazepines Screen NEGATIVE NEGATIVE Urine Cocaine Screen NEGATIVE NEGATIVE Urine Cannabinoids Screen POSITIVE H NEGATIVE White Blood Count 8.8 4.3-11.0 10^3/uL Red Blood Count 5.22 4.30-5.52 10^6/uL Hemoglobin 15.4 13.3-17.7 g/dL Hematocrit 45 40-54 % Mean Corpuscular Volume 86 80-99 fL Mean Corpuscular Hemoglobin 30 25-34 pg Mean Corpuscular Hemoglobin Concent 35 32-36 g/dL Red Cell Distribution Width 12.2 10.0-14.5 % Platelet Count 238 130-400 10^3/uL Mean Platelet Volume 10.4 9.0-12.2 fL Immature Granulocyte % (Auto) 1 % Neutrophils (%) (Auto) 61 42-75 % Lymphocytes (%) (Auto) 28 12-44 % Monocytes (%) (Auto) 9 0-12 % Eosinophils (%) (Auto) 2 0-10 % Basophils (%) (Auto) 1 0-10 % Neutrophils # (Auto) 5.4 1.8-7.8 10^3/uL Lymphocytes # (Auto) 2.5 1.0-4.0 10^3/uL Monocytes # (Auto) 0.8 0.0-1.0 10^3/uL Eosinophils # (Auto) 0.1 0.0-0.3 10^3/uL Basophils # (Auto) 0.1 0.0-0.1 10^3/uL Immature Granulocyte # (Auto) 0.0 0.0-0.1 10^3/uL Sodium Level 140 135-145 MMOL/L Potassium Level 3.8 3.6-5.0 MMOL/L Chloride Level 105 98-107 MMOL/L Carbon Dioxide Level 20 L 21-32 MMOL/L Anion Gap 15 H 5-14 MMOL/L Blood Urea Nitrogen 13 7-18 MG/DL Creatinine 0.86 0.60-1.30 MG/DL Estimat Glomerular Filtration Rate > 60 BUN/Creatinine Ratio 15 Glucose Level 101 70-105 MG/DL Calcium Level 10.0 8.5-10.1 MG/DL Corrected Calcium 8.5-10.1 MG/DL Total Bilirubin 0.9 0.1-1.0 MG/DL Aspartate Amino Transf (AST/SGOT) 23 5-34 U/L Alanine Aminotransferase (ALT/SGPT) 103 H 0-55 U/L Alkaline Phosphatase 59 40-136 U/L Total Protein 7.8 6.4-8.2 GM/DL Albumin 5.0 H 3.2-4.5 GM/DL Salicylates Level < 5.0 L 5.0-20.0 MG/DL Acetaminophen Level < 10 L 10-30 UG/ML Valproic Acid (Depakene) Level 3.4 L 50.0-100.0 UG/ML Serum Alcohol < 10 <10 MG/DL My Orders Orders - SONALI YAN DO Acetaminophen (04/10/21 04:51) Alcohol (04/10/21 04:51) Cbc With Automated Diff (04/10/21 04:51) Comprehensive Metabolic Panel (04/10/21 04:51) Drug Screen Stat (Urine) (04/10/21 04:51) Salicylate (04/10/21 04:51) Ua Culture If Indicated (04/10/21 04:51) Valproic Acid (04/10/21 05:00) Vital Signs/I&O 04/10/21 04:44 Temp 36.7 Pulse 85 Resp 18 B/P (MAP) 142/103 (116) Pulse Ox 96 O2 Delivery Room Air Departure Impression Primary Impression: Illicit drug use Additional Impression: Marijuana use Disposition: 01 HOME, SELF-CARE Condition: Stable Departure-Patient Inst. Decision time for Depature: 05:20 Referrals: [facility] Patient Instructions: ALCOHOL AND SUBSTANCE ABUSE, Marijuana Use and Addiction (DC) Add. Discharge Instructions: HOME, REST LOTS OF CLEAR LIQUIDS--WATER, BROTH, JELLO, GATORADE NO DRUGS!!! NO ALCOHOL!!! FOLLOW UP WITH [facility] DRUG TREATMENT PROGRAM AND ALSO WITH [facility] MENTAL HEALTH THIS WEEK--CALL THIS MORNING TO SCHEDULE AN APPOINTMENT All discharge instructions reviewed with patient and/or family. Voiced understanding. SONALI YAN DO Apr 10, 2021 05:06
[2021-04-10 05:07] LABS: BACTERIA,URINE TRACE /HPF; SQUAMOUS EPITHELIAL CELL,UR 0-2 /HPF; WBC,URINE RARE /HPF
[2021-04-10 05:09] LABS: AMPHETAMINE SCREEN, URINE NEGATIVE (NEGATIVE); BARBITURATE SCREEN URINE NEGATIVE (NEGATIVE); BENZODIAZEPINES SCREEN URINE NEGATIVE (NEGATIVE); CANNABINOID SCREEN, URINE POSITIVE (NEGATIVE); COCAINE SCREEN URINE NEGATIVE (NEGATIVE); METHADONE STAT NEGATIVE (NEGATIVE); METHAMPHETAMINE SCREEN URINE S NEGATIVE (NEGATIVE); OPIATE SCREEN URINE NEGATIVE (NEGATIVE); OXYCODONE STAT NEGATIVE (NEGATIVE); PROPOXYPHENE STAT NEGATIVE (NEGATIVE); TRICYCLIC ANTIDEPRESSANTS SCRE NEGATIVE (NEGATIVE)
[2021-04-10 05:11] LABS: CHLORIDE 105 MMOL/L (98-107); POTASSIUM 3.8 MMOL/L (3.6-5.0); SODIUM 140 MMOL/L (135-145)
[2021-04-10 05:14] LABS: GLUCOSE 101 MG/DL (70-105); TOTAL PROTEIN 7.8 GM/DL (6.4-8.2)
[2021-04-10 05:15] LABS: BILIRUBIN,TOTAL 0.9 MG/DL (0.1-1.0); CARBON DIOXIDE 20 MMOL/L (21-32)
[2021-04-10 05:17] LABS: ALKALINE PHOSPHATASE 59 U/L (40-136); CREATININE SERUM 0.86 MG/DL (0.60-1.30); GFR ESTIMATED > 60
[2021-04-10 05:19] LABS: ACETAMINOPHEN < 10 UG/ML (10-30); BUN/CREATININE RATIO 15
[2021-04-10 05:20] LABS: ALANINE AMINOTRANSFERASE 103 U/L (0-55); SALICYLATE < 5.0 MG/DL (5.0-20.0)
== END 2021-04-10 05:24 | disposition home or self-care (01) ==
LOC: EDUNIT# 04:31 → ER 04:38
DX: F19.90 Other psychoactive substance use, unspecified, uncomplicated (principal); F12.90 Cannabis use, unspecified, uncomplicated; Z88.8 Allergy status to other drugs, medicaments and biological substances; Z87.891 Personal history of nicotine dependence
CPT/HCPCS: 80053; 80164; 80306; 81000; 85025; 99283; G0480 ×3; 36415; 80320; 80329